=== PATIENT | male | born 1995 | race Caucasian/White ===

== ENCOUNTER → 2023-08-14 | Outpatient (CLI) | payer OTHER, SELFPAY ==
[2023-08-14 17:56] LABS: NATERA MAILED SPECIMEN
== END | disposition home or self-care (01) ==
PROVIDERS: Referring Provider Obstetrics & Gynecology; Visit Provider Obstetrics & Gynecology
DX: Z31.440 Encounter of male for testing for genetic disease carrier status for procreative management (principal)
CPT/HCPCS: 36415

== ENCOUNTER 2024-06-30 19:04 | Emergency (ER) | payer OTHER, SELFPAY ==
[2024-06-30 19:05] VITALS: BP 141/70; PULSE 91; RESP 20; TEMP 36.2; O2SAT 99
[2024-06-30 19:09] VITALS: BP 141/70; PULSE 91; RESP 20; TEMP 36.2; O2SAT 99
--- NOTE | 2024-06-30 19:44 | EDS_ITS ---
HPI History of Present Illness HPI Narrative: Patient presents with puncture wound to his right thumb that occurred tonight. 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 Patient states that when he grabbed a trash bag, the needle went into his thumb. Patient denies any paresthesias or weakness. Patient states his last tetanus was 4 years ago. Patient denies any bleeding. Patient denies any discoloration. Patient denies any other injuries. Patient was referred to the emergency department for possible blood-borne exposure. Chief Complaint: Occup Expose Informant: patient Occured/Mechanism Mechanism/Context: Yes puncture wound Onset/Context/Timing Onset: Today Context: Sudden Onset Timing: Continuous Location: Right thumb Worsened by: Nothing Relieved by: Nothing Associated Symptoms Associated Symptoms: Negative for Parasthesia, Weakness or Loss of Funtion Narrative Tetanus Immunization: <5 years [facility] Medical History (Updated 06/30/24 @ 20:[address] Neto Amor DO) Phenylketonuria (PKU) Home Medications ?Medication ?Instructions ?Recorded ?Last Taken ?Type azithromycin 250 mg tablet 250 mg PO DAILY ##5 06/21/13 Unknown Rx methylphenidate 10 mg/9 hr daily 1 ea transdermal DAILY 06/21/13 Unknown History transdermal patch (Daytrana) ondansetron 4 mg disintegrating 8 mg (2 x 4 mg) PO Q8H PRN PRN 06/21/13 Unknown Rx tablet Nausea #10 tabs Allergy/AdvReac Type Severity Reaction Status Date / Time No Known Allergies Allergy Verified 06/21/13 08:24 Surgical History (Updated 06/30/24 @ 19:[address] Neto Amor DO) Hx of appendectomy Social History Smoking Status: Never smoker ROS ROS ED Constitutional Constitutional ED: Denies chills or fever(s) Eyes Eyes: Denies blurry vision or change in vision ENT ENT ED: Denies rhinorrhea or sore throat Cardiovascular Cardiovascular: Denies chest pain or palpitations Respiratory/Chest Respiratory/Chest: Denies cough or dyspnea Gastrointestinal Gastrointestinal: Denies nausea or vomiting Genitourinary Genitourinary ED: Denies dysuria or hematuria Musculoskeletal Musculoskeletal: Denies back pain or neck pain Integumentary Denies abscess or rash Neurologic Neurologic: Reports headache(s); Denies weakness Allergic/Immunologic Allergic/Immunologic ED: Denies mouth swelling or urticaria EXAM Physical Exam Const Vital Signs: 06/30/24 19:05 06/30/24 19:09 Temperature 97.2 F L 97.2 F L Temperature Source Temporal Temporal Pulse Rate 91 91 Respiratory Rate 20 H 20 H Blood Pressure 141/70 H 141/70 H Blood Pressure Mean 93 93 Pulse Ox 99 99 Oxygen Delivery Method Room Air Room Air Positive well nourished and well developed General Appearance ED: well developed and NAD HEENT Reports moist mucous membranes Neck full ROM and supple Extremity Extremity Narrative: There is a small puncture wound noted over the volar aspect of the proximal phalanx of the right thumb. There is no active bleeding. There is no surrounding erythema. There is no discharge or drainage. Sensation was intact to light touch in all digits. Capillary refill was less than 2 seconds in all digits. Strength is 5/5 in flexion and extension of the MP and IP joints of the right thumb. Neuro oriented x3, CN's II-XII intact bilaterally, moves all extremities, no focal motor deficits and no sensory deficits noted Sensorium / Orientation: alert Motor Exam: strength 5/5 throughout Psych mental status grossly normal MDM MDM MDM Narrative Medical decision making narrative: Blood-borne exposure labs were obtained. Patient was advised that these results will not be returned tonight. Patient was instructed to follow-up with occupational health for these results. Patient was instructed to watch for si gns of infection such as redness, swelling, pain, and lymphangitic streaking. Patient was instructed to return if any of the signs or symptoms would develop. Patient was instructed return if worse in any way. Patient was instructed to follow-up with his primary care physician and occupational health and 5 to 7 days. Patient understood and was agreeable with the plan. All questions were answered. Discharge Plan Triage Chief Complaint: Occup Expose ED Provider: Neto Amor Dx/Rx/DC Orders Clinical Impression: Puncture wound of right thumb, Accidental needlestick injury with exposure to body fluid Prescriptions: No Action methylphenidate [Daytrana] 1 EACH patch 24 hour 1 ea transdermal DAILY azithromycin 250 MG tablet 250 mg PO DAILY Qty: 5 0RF ondansetron 4 MG tablet 8 mg PO Q8H PRN PRN (Reason: Nausea) Qty: 10 0RF Primary Care Provider: Care Physician,No Primary Referrals: Care Physician,No Primary [Primary Care Provider] - Clinic,NOW [Non-Staff] - 5-7 Days Print Language: Japanese Disposition Disposition: Home, Self Care
[2024-06-30 20:11] VITALS: BP 132/74; PULSE 87; RESP 18; TEMP 36.4; O2SAT 96
[2024-06-30 21:09] LABS: HIV - WCH Non-Reactive (Nonreactive); Hepatitis B Surface Antibody Non-Reactive; Hepatitis B Surface Antigen Non-Reactive (Nonreactive); Hepatitis C Antibody Non-Reactive (Nonreactive)
== END 2024-06-30 20:35 | disposition home or self-care (01) ==
PROVIDERS: Emergency Provider Emergency Medicine; Visit Provider Emergency Medicine
DX: S61.031A Puncture wound without foreign body of right thumb without damage to nail, initial encounter (principal); Z77.21 Contact with and (suspected) exposure to potentially hazardous body fluids; R51.9 Headache, unspecified; W46.1XXA Contact with contaminated hypodermic needle, initial encounter; Y99.0 Civilian activity done for income or pay
CPT/HCPCS: 86703; 86706; 86803; 87340; 99282